=== PATIENT | male | born 1995 ===

== ENCOUNTER 2023-02-08 08:48 | Outpatient (RCR) | payer OTHER, SELFPAY | END 2023-06-08 23:59 | disposition home or self-care (01) | PROVIDERS: PCP Emergency Medicine; Visit Provider Emergency Medicine | DX: M53.3 Sacrococcygeal disorders, not elsewhere classified (principal); M54.50 Low back pain, unspecified; M79.18 Myalgia, other site; Z51.89 Encounter for other specified aftercare | CPT/HCPCS: 97110; 97161 ==

== ENCOUNTER 2023-05-04 08:36 | Outpatient (CLI) | payer OTHER, SELFPAY | END 2023-05-04 08:37 | disposition home or self-care (01) | LOC: LKVREF 15:21 | PROVIDERS: PCP Emergency Medicine; Referring Provider Emergency Medicine; Visit Provider Emergency Medicine | DX: E78.1 Pure hyperglyceridemia (principal); E78.5 Hyperlipidemia, unspecified; Z13.1 Encounter for screening for diabetes mellitus; Z13.29 Encounter for screening for other suspected endocrine disorder | CPT/HCPCS: 80061; 82947; 84443 ==